=== PATIENT | male | born 2005 | race Two or more races ===

== ENCOUNTER 2023-10-15 17:48 | Inpatient (IN) | payer BC ==
[~2023-10-15] VITALS: Ht 167.6 cm; Wt 73.0 kg
[2023-10-15 19:36] LABS: Hematocrit 46.8 % (41.0-53.0); Hemoglobin 15.7 g/dL (13.5-17.5); Mean Corpuscular Hemoglobin 30.6 pg (28.0-32.0); Mean Corpuscular Hgb Conc. 33.6 g/dL (32.0-36.0); Mean Corpuscular Volume 90.9 fL (80.0-100.0); Red Blood Cells 5.15 10^6/uL (4.5-5.90); Red Cell Distribution Width 15.2 % (11.8-14.3); White Blood Cell 13.7 10^3/uL (4.4-10.8)
[2023-10-15 19:39] LABS: Basophils % (manual) 0 (0.0-2.0); Blast Cells 0; Metamyelocytes % 0; Myelocytes % 0; Promyelocytes % 0
[2023-10-15 19:50] LABS: Alanine Aminotransferase 562 U/L (7-40); Albumin 4.1 g/dL (3.2-4.8); Alkaline Phosphatase 315 U/L (46-116); Anion Gap 10 (5-15); Aspartate Aminotransferase 243 U/L (13-40); BUN/Creatinine Ratio 7.4 (10.0-20.0); Blood Urea Nitrogen 7 mg/dL (9-23); Carbon Dioxide 23 mmol/L (20-30); Chloride 104 mmol/L (98-107); Glucose 93 mg/dL (74-106); Potassium 3.8 mmol/L (3.5-5.1); Sodium 137 mmol/L (136-145)
[2023-10-15 19:51] LABS: Bilirubin, Total 7.3 mg/dL (0.2-1.0); Total Protein 7.1 g/dL (5.7-8.2)
[2023-10-15 20:03] LABS: Band Neutrophils % (manual) 1; Eosinophils % (manual) 1 (0-7); Lymphocytes % (manual) 32 (10.0-50.0); Monocytes % (manual) 5 (0-12); Reactive Lymphocytes 10
[2023-10-15 20:04] LABS: Platelet Estimate Adequate
[2023-10-15 20:21] LABS: Urine Bacteria FEW /hpf (None Seen); Urine Blood Negative /uL (Negative); Urine Clarity Clear (Clear); Urine Color Yellow (Yellow); Urine Mucus FEW (None Seen); Urine Protein, UAD TRACE (Negative); Urine Specific Gravity 1.016 (1.001-1.035); Urine Urobilinogen Normal (Negative); Urine WBC 1 /hpf (0 - 3)
[2023-10-15] MEDS ORDERED: PANT40TA2 PO (20:29)
[2023-10-15] MEDS ORDERED: ZOFR4T PO (20:29)
[2023-10-15] MEDS ORDERED: ONDANSETRON HCL 4 MG/2 ML VIAL IV PRN (22:45)
[2023-10-15] MEDS ORDERED: NITROGLYCERIN 0.4 MG SL TAB SL PRN (22:45)
[2023-10-15] MEDS ORDERED: MORPHINE SULFATE INJ 2 MG/ml SYRG IV PRN ×2 (22:45→23:15)
[2023-10-15] MEDS ORDERED: DOCUSATE SOD 100 MG CAP PO PRN (22:45)
[2023-10-15] MEDS ORDERED: HYDROcodone-ACET 5/325MG TAB PO PRN (23:15)
[2023-10-15] MEDS: SODIUM CHLORIDE 0.9% 1,000 ML IV SCH (23:45)
[2023-10-16] VITALS (7 sets, daily range): BP systolic 122–132; BP diastolic 68–77; PULSE 56–73; RESP 12–19; TEMP 97.7–98.8; O2SAT 96–99
[2023-10-16 06:45] LABS: Alanine Aminotransferase 588 U/L (7-40); Albumin 4.3 g/dL (3.2-4.8); Alkaline Phosphatase 332 U/L (46-116); Anion Gap 8 (5-15); Aspartate Aminotransferase 271 U/L (13-40); BUN/Creatinine Ratio 7.5 (10.0-20.0); Blood Urea Nitrogen 7 mg/dL (9-23); Calcium 9.4 mg/dL (8.5-10.1); Carbon Dioxide 24 mmol/L (20-30); Chloride 103 mmol/L (98-107); Cholesterol 163 mg/dL (< 200); Glucose 89 mg/dL (74-106); HDL Cholesterol 43 mg/dL (40-59); LDL Cholesterol 81 mg/dL (< 100); Potassium 3.8 mmol/L (3.5-5.1); Sodium 135 mmol/L (136-145); Triglycerides 145 mg/dL (< 150)
[2023-10-16 06:46] LABS: Bilirubin, Total 7.5 mg/dL (0.2-1.0); Total Protein 7.4 g/dL (5.7-8.2)
[2023-10-16] MEDS: SODIUM CHLORIDE 0.9% 1,000 ML IV SCH ×3 (07:18→22:27)
[2023-10-16 07:22] LABS: INR 1.02 (0.9-1.15); Prothrombin Time 10.9 sec (9.3-11.8)
[2023-10-16 07:27] LABS: Hematocrit 45.4 % (41.0-53.0); Hemoglobin 15.1 g/dL (13.5-17.5); Mean Corpuscular Hemoglobin 30.5 pg (28.0-32.0); Mean Corpuscular Hgb Conc. 33.3 g/dL (32.0-36.0); Mean Corpuscular Volume 91.4 fL (80.0-100.0); Red Blood Cells 4.97 10^6/uL (4.5-5.90); Red Cell Distribution Width 15.4 % (11.8-14.3); White Blood Cell 12.6 10^3/uL (4.4-10.8)
[2023-10-16 07:55] LABS: Band Neutrophils % (manual) 0; Basophils % (manual) 0 (0.0-2.0); Blast Cells 0; Eosinophils % (manual) 0 (0-7); Metamyelocytes % 0; Myelocytes % 0; Promyelocytes % 0
[2023-10-16] MEDS: cefTRIAXone 1GM/50ML D5W 50 ML IV SCH (09:35)
[2023-10-16] MEDS ORDERED: LEVO25TA6 PO (11:52)
[2023-10-16] MEDS: metroNIDAZOLE 500MG/100ML 100 ML IV SCH ×3 (11:54→22:27)
[2023-10-16 13:02] LABS: Lymphocytes % (manual) 44 (10.0-50.0); Monocytes % (manual) 7 (0-12); Platelet Estimate Adequate; Reactive Lymphocytes 16
[2023-10-17 05:00] VITALS: BP 101/56; PULSE 53; RESP 16; TEMP 98; O2SAT 98
[2023-10-17] MEDS: SODIUM CHLORIDE 0.9% 1,000 ML IV SCH (06:45)
[2023-10-17] MEDS ORDERED: LEVOTHYROXINE SODIUM 25 MCG TAB PO SCH (07:00)
[2023-10-17] MEDS: metroNIDAZOLE 500MG/100ML 100 ML IV SCH ×2 (07:05→14:00)
[2023-10-17 08:00] VITALS: BP 105/62; PULSE 55; RESP 20; TEMP 98.6; O2SAT 100
[2023-10-17 09:31] VITALS: BP 105/62; PULSE 55; RESP 20; TEMP 98.6; O2SAT 100
[2023-10-17] MEDS: cefTRIAXone 1GM/50ML D5W 50 ML IV SCH (09:43)
[2023-10-17 11:37] LABS: Alanine Aminotransferase 560 U/L (7-40); Albumin 3.9 g/dL (3.2-4.8); Alkaline Phosphatase 352 U/L (46-116); Anion Gap 9 (5-15); Aspartate Aminotransferase 256 U/L (13-40); Bilirubin, Total 7.1 mg/dL (0.2-1.0); Blood Urea Nitrogen 11 mg/dL (9-23); Calcium 9.2 mg/dL (8.5-10.1); Carbon Dioxide 25 mmol/L (20-30); Chloride 105 mmol/L (98-107); Glucose 97 mg/dL (74-106); Sodium 139 mmol/L (136-145); Total Protein 6.5 g/dL (5.7-8.2)
[2023-10-17 12:10] LABS: Anti-Centromere B Antibody <0.2 AI (0.0-0.9); Anti-Jo-1 Antibody <0.2 AI (0.0-0.9); Anti-dsDNA Antibody 2 IU/mL (0-9); Antichromatin Antibody <0.2 AI (0.0-0.9); Antiscleroderma-70 Antibody <0.2 AI (0.0-0.9); RNP Antibody 0.2 AI (0.0-0.9); Sjogren's Anti-SS-A Antibody <0.2 AI (0.0-0.9); Sjogren's Anti-SS-B Antibody <0.2 AI (0.0-0.9); Smith Antibody <0.2 AI (0.0-0.9)
[2023-10-17 12:33] VITALS: BP 133/78; PULSE 61; RESP 20; TEMP 98.3; O2SAT 99
[2023-10-17 13:08] VITALS: BP 133/78; PULSE 61; RESP 20; TEMP 98.6; O2SAT 99
[2023-10-18 09:07] LABS: Anti-Nuclear Antibody Direct Negative (Negative)
[2023-10-18 09:10] LABS: Hepatitis B Surface Antigen Negative (Negative)
[2023-10-18 09:30] LABS: Hepatitis A Ab IgM Negative
[2023-10-18 09:31] LABS: Hepatitis B Core IgM Negative; Hepatitis C Antibody Negative (Negative)
[2023-10-19 15:06] LABS: Actin (Smooth Muscle) Antibody 17 Units (0-19); Mitochondrial (M2) Antibody <20.0 Units (0.0-20.0)
== END 2023-10-17 14:33 | disposition home or self-care (01) | DRG 392 ==
LOC: ER 17:48 → OVERFLOW 23:00 → WEST WING 10-16 11:22
PROVIDERS: ADMIT Nurse Practitioner; ATTEND Nurse Practitioner
DX: K52.9 Noninfective gastroenteritis and colitis, unspecified (principal); E80.6 Other disorders of bilirubin metabolism; R74.01 Elevation of levels of liver transaminase levels; E03.9 Hypothyroidism, unspecified; Z20.822 Contact with and (suspected) exposure to COVID-19; Z83.3 Family history of diabetes mellitus; Z80.0 Family history of malignant neoplasm of digestive organs; Z82.49 Family history of ischemic heart disease and other diseases of the circulatory system
CPT/HCPCS: 36415; 74176; 74177; 76705; 80053; 80061; 80074; 80320; 81001; 82140; 82390; 82728; 83516; 83690; 84443; 85007; 85027; 85610; 86038; 86225; 86235; 96365; G0378; J3490

== ENCOUNTER 2024-04-10 12:19 | Emergency (ER) | payer BC ==
[~2024-04-10] VITALS: Ht 167.6 cm; Wt 75.7 kg
[~2024-04-10 12:19] MED LIST: LEVO25TA6 PO; PANT40TA2 PO; ZOFR4T PO
[2024-04-10 14:59] LABS: Bilirubin, Direct 0.5 mg/dL (<0.3); Bilirubin, Total 4.1 mg/dL (0.2-1.0)
[2024-04-10] MEDS: SODIUM CHLORIDE 0.9% 1,000 ML IV ONE (15:46)
[2024-04-10 16:37] LABS: Amphetamine Screen, Urine Neg (NEGATIVE); Barbiturate Scree,Urine Neg (NEGATIVE); Benzodiazephine Screen, Urine Neg (NEGATIVE); Cannabinoid Screen, Urine Pos (NEGATIVE); Cocaine Screen, Urine Neg (NEGATIVE); Opiate Scree,Urine Neg (NEGATIVE); Phencyclidine Screen, Urine Neg (NEGATIVE)
[2024-04-10 16:57] VITALS: BP 124/69; PULSE 52; RESP 16; TEMP 98.2; O2SAT 100
== END 2024-04-10 17:03 | disposition home or self-care (01) ==
LOC: ER 12:19
DX: E80.6 Other disorders of bilirubin metabolism (principal); F12.10 Cannabis abuse, uncomplicated; E03.9 Hypothyroidism, unspecified; Z79.899 Other long term (current) drug therapy
CPT/HCPCS: 36415; 80307; 80320; 82247; 82248; 96360; 99283; J7030

== ENCOUNTER 2024-04-12 13:32 | Emergency (ER) | payer BC ==
[~2024-04-12] VITALS: Ht 167.6 cm; Wt 74.1 kg
[2024-04-12 14:21] LABS: Bilirubin, Direct 0.8 mg/dL (<0.3); Bilirubin, Total 3.9 mg/dL (0.2-1.0)
[2024-04-12 14:46] VITALS: BP 136/76; PULSE 72; RESP 18; TEMP 98; O2SAT 98
[2024-04-12] MEDS: SODIUM CHLORIDE 0.9% 1,000 ML IV ONE ×2 (14:49)
[2024-04-12 15:07] LABS: Chloride 106 mmol/L (98-107); Sodium 138 mmol/L (136-145)
[2024-04-12 15:08] LABS: Anion Gap 7 (5-15); Carbon Dioxide 25 mmol/L (20-30)
[2024-04-12 15:10] LABS: Basophils # (auto) 0.1 10 ^3/uL (0-0.2); Basophils % (auto) 0.6 % (0.0-2.0); Eosinophils # (auto) 0 10 ^3/uL (0-0.8); Eosinophils % (auto) 0.4 % (0.0-7.0); Hematocrit 47.7 % (41.0-53.0); Hemoglobin 16.2 g/dL (13.5-17.5); Lymphocytes # (auto) 1.9 10 ^3/uL (0.4-5.4); Lymphocytes % (auto) 21.9 % (10.0-50.0); Mean Corpuscular Hemoglobin 30.7 pg (28.0-32.0); Mean Corpuscular Hgb Conc. 33.9 g/dL (32.0-36.0); Mean Corpuscular Volume 90.6 fL (80.0-100.0); Monocytes # (auto) 0.7 10 ^3/uL (0-1.3); Monocytes % (auto) 7.8 % (0.0-12.0); Neutrophils % (auto) 69.3 % (37.0-80.0); Nucleated Red Blood Cells % 0.2 %; Red Blood Cells 5.27 10^6/uL (4.5-5.90); Red Cell Distribution Width 14.5 % (11.8-14.3); White Blood Cell 8.6 10^3/uL (4.4-10.8)
[2024-04-12 15:13] LABS: Glucose 99 mg/dL (74-106)
[2024-04-12 15:14] LABS: BUN/Creatinine Ratio 13.4 (10.0-20.0); Blood Urea Nitrogen 15 mg/dL (9-23)
== END 2024-04-12 15:42 | disposition home or self-care (01) ==
LOC: ER 13:32
DX: E80.6 Other disorders of bilirubin metabolism (principal); F12.90 Cannabis use, unspecified, uncomplicated; E03.9 Hypothyroidism, unspecified; Z79.899 Other long term (current) drug therapy
CPT/HCPCS: 36415; 80048; 82247; 82248; 85025; 85045; 96360; 99283; J7030